=== PATIENT | female | born 1955 ===

== ENCOUNTER → 2023-08-29 06:09 | Outpatient (CLI) | payer OTHER | END | disposition home or self-care (01) | LOC: LAB 06:09 | PROVIDERS: ATTEND Orthopaedic Surgery | DX: E56.1 Deficiency of vitamin K (principal); E83.42 Hypomagnesemia; M85.9 Disorder of bone density and structure, unspecified ==

== ENCOUNTER 2023-09-21 10:04 | Outpatient (CLI) | payer OTHER | END 2023-09-21 10:05 | disposition home or self-care (01) | LOC: RAD 10:04 | PROVIDERS: ATTEND Orthopaedic Surgery | DX: M25.511 Pain in right shoulder (principal); M25.512 Pain in left shoulder ==

== ENCOUNTER 2023-09-28 07:16 | Outpatient (CLI) | payer OTHER | END 2023-09-28 13:16 | disposition home or self-care (01) | LOC: TOM 07:16 | PROVIDERS: ATTEND Orthopaedic Surgery | DX: M75.122 Complete rotator cuff tear or rupture of left shoulder, not specified as traumatic (principal); M19.012 Primary osteoarthritis, left shoulder ==

== ENCOUNTER 2023-10-25 05:16 | Day surgery (SDC) | payer OTHER ==
[2023-10-20 11:15] LABS: HEMATOCRIT 33.1 % (36.0-45.00); HEMOGLOBIN 11.1 g/dL (12.0-15.00); MEAN CELL VOLUME 95.9 fL (80.00-100.00); MEAN CORPUSCULAR HEMOGLOBIN 32.1 pg (27.00-32.0); MEAN CORPUSCULAR HGB CONC 33.5 g/dl (32.0-36.0); PLATELET COUNT 327 K/uL (150-450); RED BLOOD COUNT 3.45 M/uL (4.00-6.00); RED CELL DISTRIBUTION WIDTH 14.1 % (11.5-14.5)
[2023-10-20 11:22] LABS: URINE APPEARANCE Clear; URINE BILIRRUBIN Negative (NEGATIVE); URINE BLOOD Negative; URINE COLOR Yellow; URINE GLUCOSE Negative (NEGATIVE); URINE LEUKOCYTE Trace; URINE NITRATE Negative; URINE PROTEIN Negative (NEGATIVE); URINE UROBILINOGEN 0.2 E.U./dl
[2023-10-20 11:26] LABS: URINE EPITHELIAL CELLS 1.9 uL (0.0-38.8); URINE RBC 4.1 uL (0.0-20.8); URINE WBC 1.9 uL (0.0-23.2)
[2023-10-20 11:48] LABS: INR 0.96; PARTIAL THROMBOPLASTIN TIME 29.9 SECONDS (22.0-34.0); PROTHROMBIN TIME 10.1 SECONDS (9.0-11.5)
[2023-10-20 11:48] LABS: URINE BACTERIA 0 uL (0.0-1933)
[2023-10-20 11:50] LABS: BILIRUBIN TOTAL 0.37 mg/dL (0.3-1.2); CALCIUM 9.2 mg/dL (8.5-10.1); CREATININE SERUM 0.69 mg/dL (0.55-1.02); GFR 84.61; GLOBULINA 4.2 G/DL (2.4-3.5); POTASSIUM 4.54 mEq/L (3.5-5.1); TOTAL PROTEIN 8.2 gm/dL (6.4-8.2)
[2023-10-20 12:56] LABS: COL EPI 86 SECONDS (82-175)
[~2023-10-25] VITALS: Ht 152.4 cm; Wt 62.1 kg
[~2023-10-25 05:16] MED LIST: ATIVAN2 M1 PO; CYMBALTA30 MG PO; GRALISE600 MG PO; INDERAL LA160 MG PO; PERCOCET 7.5-31 EACH PO
[2023-10-25] MEDS ORDERED: POVIDONE-IODINE 3 EA MED..SWAB TOP ONE (06:57)
[2023-10-25] MEDS ORDERED: LIDOCAINE HCL/EPINEPHRINE 20 ML VIAL IJ ONE (07:05)
[2023-10-25] MEDS ORDERED: VANCOMYCIN HCL 1,000 MG VIAL ONE (07:05)
[2023-10-25] MEDS ORDERED: TRANEXAMIC ACID 100MG/1ML (1000MG) AMPUL IV ONE ×2 (07:06→09:00)
[2023-10-25] MEDS ORDERED: KETOROLAC TROMETHAMINE 60 MG VIAL IM ONE ×2 (07:06→09:00)
[2023-10-25] MEDS ORDERED: ISOPROPYL ALCOHOL 30 ML OUNCE TOP ONE (09:00)
[2023-10-25] MEDS ORDERED: LIDOCAINE HCL/EPINEPHRINE 30 ML ML IJ ONE (09:00)
[2023-10-25] MEDS ORDERED: BUPIVACAINE HCL/PF 2.5 MG/ML 30ML VIAL InF ONE (09:00)
[2023-10-25] MEDS ORDERED: CEFAZOLIN SODIUM 1,000 MG VIAL IV ONE (09:00)
[2023-10-25] MEDS ORDERED: SUGAMMADEX SODIUM 200 MG/2 ML VIAL IV ONE (11:33)
== END 2023-10-25 15:05 | disposition home or self-care (01) ==
LOC: CIR.AMB 05:16
PROVIDERS: ATTEND Orthopaedic Surgery
DX: M75.102 Unspecified rotator cuff tear or rupture of left shoulder, not specified as traumatic (principal); M19.012 Primary osteoarthritis, left shoulder; Z20.822 Contact with and (suspected) exposure to COVID-19; I10 Essential (primary) hypertension; Z91.041 Radiographic dye allergy status
CPT/HCPCS: 23472; L8699

== ENCOUNTER 2025-08-27 09:00 | Day surgery (SDC) | payer OTHER ==
[2025-08-23 11:08] VITALS: BP 130/85
[~2025-08-27] VITALS: Ht 154.9 cm; Wt 61.2 kg
[~2025-08-27 09:00] MED LIST changes: +CEFAZOLIN SODIUM 1,000 MG VIAL ONE; +DULOXETINE HCL60 MG PO; +PREVACID30 MG PO
[2025-08-27] MEDS ORDERED: GENTAMICIN SULFATE 40 MG/ML VIAL ONE (09:03)
[2025-08-27] MEDS ORDERED: CHLORHEXIDINE GLUCONATE 120 ML BOTTLE TOP ONE (09:03)
[2025-08-27] MEDS ORDERED: LIDOCAINE HCL 1% 20 ML VIAL IJ ONE (09:04)
[2025-08-27] MEDS ORDERED: TRAM1TAB98 PO (11:19)
[2025-08-27] MEDS ORDERED: CEPHALEXIN250 MG PO (11:19)
== END 2025-08-27 12:25 | disposition home or self-care (01) ==
LOC: CIR.AMB 09:00
PROVIDERS: ATTEND Obstetrics & Gynecology Gynecology
DX: N39.41 Urge incontinence (principal); R15.9 Full incontinence of feces; N32.81 Overactive bladder
CPT/HCPCS: 64581; 64590; 95972; C1767; C1778